=== PATIENT | male | born 1970 | race African-American/Black ===

== ENCOUNTER 2017-10-11 22:12 | Emergency (ER) | payer MEDICAID ==
[~2017-10-11] VITALS: Ht 190.5 cm; Wt 134.0 kg
[2017-10-12] MEDS ORDERED: KETOROLAC 60MG/2ML VIAL IM ONE (02:45)
[2017-10-12] MEDS ORDERED: OXYCODONE HCL/ACETAMINOPHEN 5/325MG TABLET PO ONE (02:45)
[2017-10-12 03:05] VITALS: BP 134/71
== END 2017-10-12 03:05 | disposition home or self-care (01) ==
LOC: ER 22:12
DX: K08.89 Other specified disorders of teeth and supporting structures (principal); F17.200 Nicotine dependence, unspecified, uncomplicated
CPT/HCPCS: 96372; 99283; J1885